=== PATIENT | male | born 1960 | race Caucasian/White ===

== ENCOUNTER 2017-05-18 19:36 | Emergency (ER) | payer SELFPAY ==
[2017-05-18 19:38] VITALS: BP 145/85; PULSE 89; RESP 16; TEMP 98.3; O2SAT 98
--- NOTE | 2017-05-18 21:16 | RADRPT ---
EXAM DATE/TIME: 05/18/2017 20:51 [place] COMPARISON: No previous studies available for comparison. INDICATIONS : Left leg edema. MEDICAL HISTORY : Left leg edema. SURGICAL HISTORY : None. ENCOUNTER: Initial ACUITY: 1 day PAIN SCORE: 7/10 LOCATION: Left leg. TECHNIQUE: Venous ultrasound of the leg was performed from the inguinal ligament to the proximal calf. Real-miri e, color Doppler and spectral tracing, compression and augmentation techniques were used. FINDINGS: Extensive deep venous thrombosis throughout the left lower extremity with occlusive and nonocclusive thrombus visualized from the common femoral vein, the superficial femoral vein, popliteal and peronea l tributary. Venous flow remains in the posterior tibial vein. CONCLUSION: Extensive occlusive and nonocclusive thrombus throughout the left lower extremity deep venous sy stem. Santiago Echevarria MD on May 18, 2017 at 21:11 Board Certified Radiologist. This report was verified electronically.
[2017-05-18 21:48] LABS: AUTOMATED NEUTROPHIL # 3.3 TH/MM3 (1.8-7.7); BASOPHIL % 0.2 % (0.0-2.0); EOSINOPHIL # 0.1 TH/MM3 (0-0.4); EOSINOPHIL % 2.5 % (0.0-4.0); HEMATOCRIT 41.9 % (39.0-51.0); HEMO FLAGS DIFF FINAL; LYMPH % 25.7 % (9.0-44.0); LYMPHOCYTE # 1.5 TH/MM3 (1.0-4.8); MEAN CORPUSCULAR HEMOGLOBIN 28.8 PG (27.0-34.0); MEAN CORPUSCULAR HGB CONC 33.9 % (32.0-36.0); MONO % 13.8 % (0.0-8.0); NEUT % 57.8 % (16.0-70.0); PLATELET COUNT 179 TH/MM3 (150-450); RED BLOOD COUNT 4.94 MIL/MM3 (4.50-5.90); WHITE BLOOD COUNT 5.7 TH/MM3 (4.0-11.0)
[2017-05-18 21:58] LABS: APTT (PATIENT) 27.5 SEC (24.3-30.1); PROTHROMBIN TIME - PATIENT 10.9 SEC (9.8-11.6)
[2017-05-18 21:59] LABS: BICARBONATE 27.7 MEQ/L (21.0-32.0); POTASSIUM 3.7 MEQ/L (3.5-5.1)
[2017-05-18 22:10] VITALS: BP 145/88; PULSE 84; RESP 18; O2SAT 98
[2017-05-18] MEDS ORDERED: APIXABAN 5 MG TABLET PO ONE (23:00)
[2017-05-18] MEDS ORDERED: APIX5TAB PO (23:07)
--- NOTE | 2017-05-18 23:08 | PD ---
HPI Chief Complaint: Edema Time Seen by Provider: 22:46 Travel History International Travel<30 days: No Contact w/Intl Traveler<30days: No Traveled to known affect area: No History of Present Illness HPI 56 years old male complains of swelling of the left lower extremity. Patient states that he noticed a swelling of left foot yesterday and the left low leg today. Patient denies any chest pain or shortness of breath. Patient denies any history of DVT or PE. Patient denies any recent history of long distance travel by airplane or by car. Patient denies any direct injury to the leg. Patient denies any prolonged immobilization recently. Patient denies any recent surgery. Patient denies any family history of DVT or PE. Patient denies any history of hypercoagulation. PFSH Past Medical History Medical History: Denies Significant Hx Tetanus Vaccination: Never Vaccinated Influenza Vaccination: No Past Surgical History Surgical History: No Previous Surgery Social History Alcohol Use: Yes (occasional ) Tobacco Use: No Substance Use: No Allergies-Medications (Allergen,Severity, Reaction): Coded Allergies: No Known Allergies (Unverified , 05/18/17) Reported Meds & Prescriptions Reported Meds & Active Scripts Active No Active Prescriptions or Reported Medications Review of Systems General / Constitutional: No: Fever Eyes: No: Visual changes HENT: No: Headaches Cardiovascular: No: Chest Pain or Discomfort Respiratory: No: Shortness of Breath Gastrointestinal: No: Abdominal Pain Genitourinary: No: Dysuria Musculoskeletal: Positive: Edema, No: Pain Skin: No Rash Neurologic: No: Weakness Psychiatric: No: Depression Endocrine: No: Polydipsia Hematologic/Lymphatic: No: Easy Bruising Physical Exam Narrative GENERAL: Well-nourished, well-developed patient. SKIN: Focused skin assessment warm/dry. HEAD: Normocephalic. EYES: No scleral icterus. No injection or drainage. NECK: Supple, trachea midline. No JVD or lymphadenopathy. CARDIOVASCULAR: Regular rate and rhythm without murmurs, gallops, or rubs. RESPIRATORY: Breath sounds equal bilaterally. No accessory muscle use. GASTROINTESTINAL: Abdomen soft, non-tender, nondistended. MUSCULOSKELETAL: Patient has mild redness noted the left low leg. No heat and no tenderness on palpation. Patient Has edema of left low leg and left foot. Good DP pulse. Sensorimotor function distally intact. BACK: Nontender without obvious deformity. No CVA tenderness. Neurologic exam normal. Data Data Last Documented VS Vital Signs Date Time Temp Pulse Resp B/P (MAP) Pulse Ox O2 Delivery O2 Flow Rate FiO2 05/18/17 22:10 84 18 145/88 (107) 98 Room Air 05/18/17 19:38 98.3 Orders Orders Complete Blood Count With Diff (05/18/17 19:55) Basic Metabolic Panel (Bmp) (05/18/17 19:55) Coag Profile (05/18/17 19:55) Us Leg Venous Doppler (05/18/17 ) Apixaban (Eliquis) (05/18/17 23:00) Labs Laboratory Tests Test 05/18/17 20:20 White Blood Count 5.7 TH/MM3 Red Blood Count 4.94 MIL/MM3 Hemoglobin 14.2 GM/DL Hematocrit 41.9 % Mean Corpuscular Volume 85.0 FL Mean Corpuscular Hemoglobin 28.8 PG Mean Corpuscular Hemoglobin Concent 33.9 % Red Cell Distribution Width 14.0 % Platelet Count 179 TH/MM3 Mean Platelet Volume 7.0 FL Neutrophils (%) (Auto) 57.8 % Lymphocytes (%) (Auto) 25.7 % Monocytes (%) (Auto) 13.8 % Eosinophils (%) (Auto) 2.5 % Basophils (%) (Auto) 0.2 % Neutrophils # (Auto) 3.3 TH/MM3 Lymphocytes # (Auto) 1.5 TH/MM3 Monocytes # (Auto) 0.8 TH/MM3 Eosinophils # (Auto) 0.1 TH/MM3 Basophils # (Auto) 0.0 TH/MM3 CBC Comment DIFF FINAL Differential Comment Prothrombin Time 10.9 SEC Prothromb Time International Ratio 1.0 RATIO Activated Partial Thromboplast Time 27.5 SEC Blood Urea Nitrogen 15 MG/DL Creatinine 0.97 MG/DL Random Glucose 87 MG/DL Calcium Level 8.8 MG/DL Sodium Level 138 MEQ/L Potassium Level 3.7 MEQ/L Chloride Level 103 MEQ/L Carbon Dioxide Level 27.7 MEQ/L Anion Gap 7 MEQ/L Estimat Glomerular Filtration Rate 80 ML/MIN MDM Medical Decision Making Medical Screen Exam Complete: Yes Emergency Medical Condition: Yes Interpretation(s) Last Impressions Lower Extremity Ultrasound 05/18/17 0000 Signed Impressions: Service Date/Time: Thursday, May 18, 2017 20:51 - CONCLUSION: Extensive occlusive and nonocclusive thrombus throughout the left lower extremity deep venous system. Santiago Echevarria MD Differential Diagnosis Differential diagnosis including DVT, cellulitis. Narrative Course 56 years old male with unprovoked left leg DVT. Bcohphx65 mg by mouth given. Diagnosis Primary Impression: Left leg DVT Qualified Codes: I82.4Z2 - Acute embolism and thrombosis of unspecified deep veins of left distal lower extremity Patient Instructions: General Instructions Additional Instructions: Take Eliquis as directed. Follow-up with local physician. Bleeding precautions given. Med/Other Pt SpecificInfo: Prescription(s) given Scripts Apixaban (Eliquis) 5 Mg Tab 5 MG PO BID for Blood Clot Prevention, #60 TAB 0 Refills Prov: Krunal Nolan MD 05/18/17 Apixaban (Eliquis) 5 Mg Tab 10 MG PO BID for Blood Clot Prevention, #14 TAB 0 Refills Prov: Krunal Nolan MD 05/18/17 Disposition: 01 DISCHARGE HOME Condition: Stable Krunal Nolan MD May 18, 2017 23:07
== END 2017-05-18 23:30 | disposition home or self-care (01) ==
LOC: NEPE 19:36
DX: I82.4Z2 Acute embolism and thrombosis of unspecified deep veins of left distal lower extremity (principal)
CPT/HCPCS: 80048; 85025; 85610; 85730; 93971